=== PATIENT | male | born 1990 | race Caucasian/White ===

== ENCOUNTER 2023-12-01 07:56 | Emergency (ER) | payer OTHER ==
[~2023-12-01] VITALS: Ht 177.8 cm; Wt 108.0 kg
[2023-12-01 08:52] VITALS: BP 151/80; PULSE 16; RESP 18; TEMP 97.6; O2SAT 97
[2023-12-01 11:07] LABS: BASOPHILS # (AUTO) 0.1 X10'3 (0-0.2); BASOPHILS % (AUTO) 0.5 % (0-1); EOSINOPHILS # (AUTO) 0.5 X10'3 (0-0.9); HEMATOCRIT 50.3 % (42.0-52.0); HEMOGLOBIN 16.8 g/dl (14.0-17.9); LYMPHOCYTES # (AUTO) 2.7 X10'3 (1.1-4.8); LYMPHOCYTES % (AUTO) 23.9 % (21-51); MEAN CORPUSCULAR HEMOGLOBIN 31.2 PG (27.0-31.0); MEAN CORPUSCULAR HGB CONC 33.4 g/dL (33.0-36.5); MEAN CORPUSCULAR VOLUME 93.6 FL (78-98); MEAN PLATELET VOLUME 7.2 FL (7.4-10.4); MONOCYTES # (AUTO) 0.7 X10'3 (0-0.9); MONOCYTES % (AUTO) 6.1 % (2-12); NEUTROPHILS # (AUTO) 7.5 X10'3 (1.8-7.7); NEUTROPHILS % (AUTO) 65.5 % (42-75); PLATELET COUNT 362 X10'3 (140-440); RED BLOOD COUNT 5.38 X10'6 (4.70-6.10); RED CELL DISTRIBUTION WIDTH 13.7 % (11.5-14.5); WHITE BLOOD COUNT 11.4 X10'3 (4.5-11.0)
[2023-12-01 11:25] LABS: ALANINE AMINOTRANSFERASE 33 U/L (12-78); ALBUMIN 4.1 G/DL (3.4-5.0); ALBUMIN/GLOBULIN RATIO 1.1 (1.1-1.5); ALKALINE PHOSPHATASE 81 IU/L (46-116); ANION GAP 6 (8-16); ASPARTATE AMINO TRANSFERASE 18 U/L (10-37); BILIRUBIN,TOTAL 0.3 MG/DL (0.1-1.0); BLOOD UREA NITROGEN 13 MG/DL (7-18); BUN/CREATININE RATIO 13.7 (10.0-20.0); CALCIUM 9.4 MG/DL (8.5-10.1); CHLORIDE 104 MMOL/L (99-107); CREATININE 0.95 MG/DL (0.60-1.10); GLUCOSE 96 MG/DL (70-104); POTASSIUM 4.3 MMOL/L (3.5-5.1); SODIUM 138 MMOL/L (135-145); TOTAL CARBON DIOXIDE 28.1 MMOL/L (24-32); TOTAL PROTEIN 7.9 G/DL (6.4-8.2); eCRCL 116 ML/MIN; eGFR > 90 ML/MIN
[2023-12-01 11:31] LABS: LIPASE 38 U/L (16-77)
[2023-12-01 11:32] LABS: ETHANOL < 10 MG/DL (<10)
[2023-12-01] MEDS ORDERED: iohexol 300mg/ml 100ml inj. ONE (12:05)
== END 2023-12-01 16:12 | disposition home or self-care (01) ==
LOC: ER 07:56
DX: S20.212A Contusion of left front wall of thorax, initial encounter (principal); S60.221A Contusion of right hand, initial encounter; S09.90XA Unspecified injury of head, initial encounter; M79.641 Pain in right hand; M54.9 Dorsalgia, unspecified; M25.551 Pain in right hip; Z88.8 Allergy status to other drugs, medicaments and biological substances; V89.2XXA Person injured in unspecified motor-vehicle accident, traffic, initial encounter; Y93.89 Activity, other specified; Y92.89 Other specified places as the place of occurrence of the external cause; Y99.8 Other external cause status
CPT/HCPCS: 36415; 72100; 80053; 80320; 83690; 84484; 85025; 99284; J3490; Q9967; 96374; 99285